=== PATIENT | female | born 1990 | race Caucasian/White ===

== ENCOUNTER 2016-08-27 01:59 | Emergency (ER) | payer OTHER ==
[~2016-08-27] VITALS: Ht 157.5 cm; Wt 68.0 kg
[~2016-08-27 01:59] MED LIST: AMOXICILLIN875 M1 PO; IBUPROFEN800 M1 PO; IBUPROFEN800 MG PO; Magic mouthwash PO; PREDNISONE20 M1 PO
[2016-08-27 02:11] VITALS: BP 99/62
--- NOTE | 2016-08-27 02:17 | ED UPPER/LOWER EXTREMITY COMPL ---
History of Present Illness General Chief Complaint: Laceration Procedure Stated Complaint: LACS TO RT HAND FROM GLASS Source: patient Exam Limitations: no limitations Vital Signs & Intake/Output Vital Signs & Intake/Output Vital Signs Date Time Temp Pulse Resp B/P B/P Pulse O2 O2 Flow FiO2 Mean Ox Delivery Rate 08/27 0211 97.7 100 16 99/62 100 Room Air Allergies Coded Allergies: NO KNOWN ALLERGIES (08/12/15) Reconcile Medications Amoxicillin 875 MG TABLET 1 TAB PO BID pharyngitis Cephalexin (Keflex) 500 MG CAPSULE 1 CAP PO 4 TIMES/DAY infection prevention Ibuprofen 800 MG TABLET 1 TAB PO TID PRN pain Ibuprofen 800 MG TABLET 1 TAB PO TID PRN pain Ibuprofen 800 MG TABLET 800 MG PO Q6P PRN PAIN SCALE 4-6 [Magic mouthwash] 1 TBSP PO Q6P PRN sore throat Viscous lidocaine/maalox/benadryl 30/120/120ml Prednisone 20 MG TABLET 1 TAB PO BID pharyngitis Triage Note: 25yo FEMALE TO TRIAGE W/CO LAC AND FB PRESENT TO R PINKY SP FALLING UP THE STAIRS WHILE CARRYING A GLASS. GLASS PARTICLE PRESENT AT TIP OF FINGER ?THROUGH AND THROUGH Triage Nurses Notes Reviewed? yes Onset: Abrupt Duration: minute(s): Timing: single episode today Severity: moderate Pain/Injury Location: Right: 5th finger. Method of Injury: puncture wound with glass shard Modifying Factors: Improves With: rest. Associated Symptoms: bleeding : No Patient currently breastfeeds: No HPI: 25 yo woman was walking up stairs with a glass. She fell. A shard of glass went through her distal right 5th digit a few minutes ago. She notes pain and bleeding, but no other injury. Past History Travel History Traveled to [place] past 21 day No Medical History Any Pertinent Medical History? see below for history Surgical History Surgical History: non-contributory Psychosocial History What is your primary language Malay Tobacco Use: Current Daily Use Daily Tobacco Use Amount/Type: => 5 Cigarettes daily Family History Hx Contributory? No Review of Systems Review of Systems Constitutional: Reports: no symptoms. EENTM: Reports: no symptoms. Respiratory: Reports: no symptoms. Cardiovascular: Reports: no symptoms. Gastrointestinal/Abdominal: Reports: no symptoms. Genitourinary: Reports: no symptoms. Musculoskeletal: Reports: no symptoms. Skin: Reports: no symptoms. Neurological/Psychological: Reports: no symptoms. Hematologic/Endocrine: Reports: no symptoms. Immunological: Reports: no symptoms. All Other Systems: Reviewed and Negative Physical Exam Physical Exam General Appearance: well developed/nourished, mild distress Head: atraumatic Eyes: Bilateral: normal appearance. Ears, Nose, Throat: normal ENT inspection Neck: normal inspection, supple Back: normal inspection Hand Right: 2 cm shard of glass penetrating completely through distal 5th digit. no bony abnormality Skin: intact, normal color, warm/dry Lymphatic: no anterior cervical maura Progress Differential Diagnosis: puncture wound vs abrasion vs laceration Plan of Care: Orders Procedure Date/time Status XRY-FINGERS, RIGHT 08/27 228 Active Current Medications Sig/Baldomero Start time Last Medication Dose Stop Time Status Admin Cephalexin 500 MG ONCE ONE 08/27 229 UNVr (Keflex) 08/27 230 Lidocaine 20 ML ONCE ONE 08/27 229 UNVr (Lidocaine 1%) 08/27 230 Tetanus/Diphtheria 0.5 ML ONCE ONE 08/27 229 UNVr Toxoids Adsorbed 08/27 230 (Decavac) Diagnostic Imaging: Viewed by Me: Radiology Read. Discussed w/RAD: Radiology Read. Radiology Impression: finger xray ... soft tissue swelling ... no fx Comments: PATIENT: IRENE DURON PRESENT AGE: 25 PATIENT ACCOUNT NO: [id number] : 91 LOCATION: [facility] ORDERING PHYSICIAN: BERTO SWARTZ MD SERVICE DATE: 08/27/16 EXAM TYPE: RAD - XRY-FINGERS, RIGHT EXAMINATION: FINGER 3 VIEWS, RIGHT CLINICAL INFORMATION: Right fifth digit wound. COMPARISON: None. TECHNIQUE: A PA view of the right hand is provided along with two views of the fifth digit. FINDINGS: There is soft tissue swelling to the fifth digit. There are no fractures or dislocations. There are no demonstrable radiopaque foreign bodies. IMPRESSION: Soft tissue swelling to the fifth digit without fracture, dislocation nor radiopaque foreign bodies. DICTATED BY: MIRANDA CALLAHAN MD DATE/TIME DICTATED:08/27/16257 HEEL EMERY BUFFER:EDIL DATE/TIME TRANSCRIBED:08/27/16257 CONFIDENTIAL, DO NOT COPY WITHOUT APPROPRIATE AUTHORIZATION. <Electronically signed in Other Vendor System> SIGNED BY: MIRANDA CALLAHAN MD 08/27/16 0303 Departure Departure Disposition: HOME OR SELF CARE Condition: Stable Clinical Impression Primary Impression: Puncture wound Secondary Impressions: Foreign body (FB) in soft tissue Referrals: KINJAL BOLTON MD (PCP/Family) Departure Forms: Customer Survey General Discharge Information Prescriptions: Current Visit Scripts Cephalexin (Keflex) 1 CAP PO 4 TIMES/DAY #28 CAP Ibuprofen 1 TAB PO TID PRN pain #30 TAB Comments 08/27/16, 3:43am... discussed with patient... no FB... small puncture wounds on distal 5th digit... no need for sutures. Pt safe for discharge. Procedures Comments Comments: procedure: foreign body extraction of distal 5th digit pt given digital block of right 5th digit. With preet clamp, 2cm shard of glass easily removed from digit without problem.
[2016-08-27] MEDS ORDERED: KEFLEX500 M1 PO (02:29)
[2016-08-27] MEDS ORDERED: IBUPROFEN800 M1 PO (02:29)
--- NOTE | 2016-08-27 03:03 | RADIOLOGY REPORT ---
EXAMINATION: FINGER 3 VIEWS, RIGHT CLINICAL INFORMATION: Right fifth digit wound. COMPARISON: None. TECHNIQUE: A PA view of the right hand is provided along with two views of the fifth digit. FINDINGS: There is soft tissue swelling to the fifth digit. There are no fractures or dislocations. There are no demonstrable radiopaque foreign bodies. IMPRESSION: Soft tissue swelling to the fifth digit without fracture, dislocation nor radiopaque foreign bodies.
== END 2016-08-27 03:49 ==
LOC: ERH 01:59
DX: S61.246A Puncture wound with foreign body of right little finger without damage to nail, initial encounter (principal); W25.XXXA Contact with sharp glass, initial encounter; Y93.9 Activity, unspecified; Y92.9 Unspecified place or not applicable
CPT/HCPCS: 73140-RT; 90471; 90714